=== PATIENT | male | born 1955 | race Caucasian/White ===

== ENCOUNTER 2025-02-09 13:12 | Emergency (ER) | payer MEDICARE, OTHER, SELFPAY ==
--- NOTE | 2025-02-09 15:19 | ED.GENMED ---
History of Present Illness
General
Chief Complaint: DVT/Possible Blood Clot
Source: patient
Exam Limitations: none
Time Seen by Provider: 02/09/25 13:40
Nursing documentation reviewed up to this point in time: agreed with
History of Present Illness
History of Present Illness:
Patient is a 69-year-old male who presents to the ER for evaluation. Patient was about a week and a half ago he was doing lunges and tweaked his left knee. He does report he has still been doing activities playing pickle ball and tennis and today
walks 5 and half miles a day notices swelling in his ankle which is what prompted him to come to the ER. Presently denies any actual knee pain.
Review of Systems
Review of Systems
Allergies reviewed?: Yes
All Other Systems: ROS reviewed and negative except as documented in HPI and ROS
Constitutional: Reports no symptoms; Denies fever, fatigue or chills
Respiratory: Reports no symptoms; Denies trouble breathing
Cardiac: Reports no symptoms
ABD/GI: Reports no symptoms
Musculoskeletal: Reports other (swelling to left leg /ankle region )
Skin: Reports no symptoms
Neurological: Reports no symptoms
Psychiatric: Reports no symptoms
Phy Exam
General Physical Exam
General Presentation: no apparent distress
General age: appears stated age
General Skin: warm and dry
General Habitus: normal
General Mental: alert
General Hydration: appears well hydrated
Neurological Exam
Neurological Exam: alert and oriented x3
Musculoskeletal Exam
Musculoskeletal Exam: full ROM and other (Minimal swelling to left knee no obvious effusion able to flex and extend no ligament laxity or pain with medial lateral stress. Very minimal swelling to distal ankle no calf tenderness or swelling no
erythema to left lower extremity )
Skin Exam
Skin Exam: normal color and warm/dry
Psychiatric Exam
Psychiatric Exam: normal mood/affect
Course
Orders/Labs/Results
Orders:
Orders
02/09/25 13:18
US Periph Venous LOWER Ext LT Urgent
Comment:
Reason For Exam: swelling
Vital Signs
Initial and Last Documented VS:
Initial Vital Signs
Pulse Resp BP Pulse Ox
55 18 136/85 100
02/09/25 15:49 02/09/25 15:49 02/09/25 15:49 02/09/25 15:49
Last Documented Vital Signs
Pulse Resp BP Pulse Ox
55 18 136/85 100
02/09/25 15:49 02/09/25 15:49 02/09/25 15:49 02/09/25 15:49
MDM/Problems Addressed
Differential Diagnosis Includes:
Not limited to Irwin's cyst, DVT
MDM/Problems Addressed:
Patient has good range of motion to his knee without any knee discomfort. As documented he did injure his knee about a week and a half ago doing lunges however today after walking 5.5 miles noticed some swelling to his ankle region. He was
concerned about a clot which is what prompted him to come to the ER. No evidence of infection he has very good range of motion to his knee no bony tenderness to knee. Ultrasound negative for DVT there is a complex popliteal collection possibly
complicated by debris or hemorrhage evolving hematoma. Patient was very nontoxic.
He is very active and is no evidence of infection. Offered patient x-ray however he declines and wishes to follow-up with his family doctor and would like to follow-up with orthopedic [facility].
*Critical Care Note
Total Time (30-74mins, 75-104mins- exclusive of procedures): Not Applicable
ED Attending Note
-
Portions of this chart may have been created with voice recognition software.� Occasional wrong word or��sound alike� substitutions may have occurred due to the inherent limitations of voice recognition software.
Discharge Plan
Departure
Patient Disposition: Home (Routine Discharge)
Date of Disposition: 02/09/25
Time of Disposition: 15:40
Patient with high blood pressure during this ER visit?: Yes
Condition: Fair
Covid-19: Not Applicable
Discharge Problem:
Leg edema, left
Instructions: Swelling, BLOOD PRESSURE
Referrals:
Gali Byers MD [Family Provider] -
Activity Restrictions/Additional Instructions:
As discussed please follow-up with family doctor as well as your administration specialist for further evaluation of findings on ultrasound.
Keep elevated as much as possible and rest as much as possible. Return if any worsening of symptoms.
Interventions
Interventions:
*Risk Screen - Suicide Last Done: 02/09/25 14:59
*Neglect/Abuse Screening Last Done: 02/09/25 14:59
ED-Skin Assessment Last Done: 02/09/25 14:59
ED-Peripheral Vascular Assessment Last Done: 02/09/25 14:59
ED- Pulmonary Assessment Last Done: 02/09/25 14:59
ED- Cardiac Assessment Last Done: 02/09/25 14:59
Discharge Date and Time
Print Language: CAMBODIAN
[2025-02-09 15:49] VITALS: BP 136/85
== END 2025-02-09 17:10 | disposition home or self-care (01) ==
LOC: EMR 13:12
PROVIDERS: EMERGENCY PHYSICIAN Emergency Medicine; FAMILY PHYSICIAN Internal Medicine
DX: R60.0 Localized edema (principal); M79.605 Pain in left leg; S89.92XA Unspecified injury of left lower leg, initial encounter; X58.XXXA Exposure to other specified factors, initial encounter; R03.0 Elevated blood-pressure reading, without diagnosis of hypertension
CPT/HCPCS: 99284; 93971